=== PATIENT | male | born 1955 | race African-American/Black ===

== ENCOUNTER 2019-12-24 11:53 | Emergency (ER) | payer MEDICARE, MEDICAID ==
[~2019-12-24] VITALS: Ht 175.3 cm; Wt 68.0 kg
[2019-12-24] MEDS ORDERED: ACETAMINOPHEN 325MG TABLET PO ONE (13:15)
[2019-12-24 14:45] VITALS: BP 147/69
== END 2019-12-24 14:51 | disposition home or self-care (01) ==
LOC: ER 11:53
DX: M19.071 Primary osteoarthritis, right ankle and foot (principal); L84 Corns and callosities; M79.671 Pain in right foot; E11.9 Type 2 diabetes mellitus without complications; Z85.9 Personal history of malignant neoplasm, unspecified; Z88.0 Allergy status to penicillin; Z88.6 Allergy status to analgesic agent
CPT/HCPCS: 73630; 82962; 99283